=== PATIENT | male | born 1950 | race Caucasian/White ===

== ENCOUNTER 2021-03-05 08:55 | Outpatient (CLI) | payer OTHER | END 2021-03-05 08:56 | disposition home or self-care (01) | LOC: CSHMRI 08:55 | PROVIDERS: ATTEND Family Medicine | DX: G89.4 Chronic pain syndrome (principal); M54.16 Radiculopathy, lumbar region; M51.9 Unspecified thoracic, thoracolumbar and lumbosacral intervertebral disc disorder; M47.816 Spondylosis without myelopathy or radiculopathy, lumbar region; R93.7 Abnormal findings on diagnostic imaging of other parts of musculoskeletal system | CPT/HCPCS: 72148 ==